=== PATIENT | female | born 1990 | race Caucasian/White ===

== ENCOUNTER 2016-12-03 00:22 | Inpatient (IN) | payer BC ==
[2016-12-03 00:33] VITALS: O2SAT 98
--- NOTE | 2016-12-03 00:42 | ED PDOC ---
Psych Transfer Clearance - Clearance Statement Clearance Statement: Reviewed vital signs, lab results and transfer papers. Patient clinically stable for psychiatric admission. cleared by dr archer
[2016-12-03] MEDS ORDERED: Magnesium Hydroxide Susp 30 ml UD PO PRN (01:03)
[2016-12-03] MEDS ORDERED: Alum-Mag Hydrox-Simethicone Susp (30 mL) PO PRN (01:03)
[2016-12-03] MEDS ORDERED: DiphenhydrAMINE 50 mg/ml Inj IM PRN (01:03)
[2016-12-03 07:21] LABS: T4 11.2 ug/dl (5.5-11.0)
[2016-12-03 07:35] LABS: THYROID STIMULATING HORMONE 1.13 mIU/ML (0.46-4.68)
--- NOTE | 2016-12-03 10:20 | PCM.PSYCH ---
Initial Psychiatric Evaluation - Initial Psychiatric Evaluation Type of Admission: Voluntary Legal Status: Capacity Chief Complaint (in patient's own words): "I've been hearing voices and seeing shadows" Patient's Reaction to Hospitalization: HPI: 26 yo female, resident of the [place], presented to the ED with worsening visual and auditory hallucinations. She reports that she was previously taking Risperdal but stopped because it caused her to sleep walk. No SI/HI. No paranoia. She is reports AH during the interview, but states that she cannot make out what the voices are saying. +Sleep and appetite disturbances. +Intermittent panic attacks and anxiety due to psychosis. She also reports intermittent visual hallucinations of shadows and also saw a small child, which she found distressing. PPHx: Reports that she was diagnosed with "psychosis" and panic attacks in the past. She used to see a Dr. Gaines, but has not been compliant with follow up. No history of psychiatric admissions. SHx: Completed 12th grade. 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 Lives between her boyfriend's house and her mother's home. Denies illicit drug use. MHx: Denies medical hx All: NKDA FHx: Denies family hx of mental illness Current Medications: Active Medications Generic Name Dose Route Start Last Admin Trade Name Freq PRN Reason Stop Dose Admin Acetaminophen 650 mg 12/03/16 01:08 Tylenol 325mg Tab PO Q4 PRN Pain, moderate (4-7) Al Hydrox/Mg Hydrox/Simethicone 30 ml 12/03/16 01:03 Maalox Plus 30 Ml PO Q4 PRN Dyspepsia Diphenhydramine HCl 50 mg 12/03/16 01:03 Benadryl IM Q6 PRN Extrapyramidal S/S Unable PO Diphenhydramine HCl 50 mg 12/03/16 01:03 Benadryl PO Q6 PRN Extrapyramidal Symptoms Diphenhydramine HCl 50 mg 12/03/16 01:07 Benadryl PO HS PRN Sleep Haloperidol 5 mg 12/03/16 01:03 Haldol PO Q4 PRN Agitation Haloperidol Lactate 5 mg 12/03/16 01:03 Haldol IM Q4 PRN Agitation, Unable to Take PO Lorazepam 2 mg 12/03/16 01:03 Ativan IM Q4 PRN Anxiety/Agitation,Unable PO Lorazepam 2 mg 12/03/16 01:03 Ativan PO Q4 PRN Anxiety/Agitation Magnesium Hydroxide 30 ml 12/03/16 01:03 Milk Of Magnesia PO HS PRN Constipation Olanzapine 5 mg 12/03/16 22:00 Zyprexa PO HS RIA Sertraline HCl 50 mg 12/04/16 09:00 Zoloft PO DAILY RIA Past Psychiatric History - Past Psychiatric History Pertinent Medical Hx (Current Medical&Sleep Prob, Allergies): Allergies Allergy/AdvReac Type Severity Reaction Status Date / Time No Known Allergies Allergy Verified 12/03/16 00:31 Sertraline [Zoloft] 50 mg PO DAILY 12/02/16 Review of Systems - Psychiatric Psychiatric: Abnormal Sleep Pattern, Anxiety, Auditory Hallucinations, Change in Appetite, Mood Swings, Panic Attacks, Visual Hallucinations Mental Status Examination - Personal Presentation Personal Presentation: Looks stated age - Affect Affect: Constricted - Motor Activity Motor Activity: Calm - Reliability in Providing Information Reliability in Providing Information: Good - Speech Speech: Organized - Mood Mood: Anxious - Formal Thought Process Formal Thought Process: Hallucinations - Hallucinations/Delusions Hallucinations: Auditory - Obsessions/Compulsions Obsessions: No Compulsions: No - Cognitive Functions Orientation: Person, Place, Situation, Time Sensorium: Alert Attention/Concentration: Attentive Estimate of Intelligence: Average Judgement: Intact, as evidence by: Good judgement Memory: Recent intact, as evidence by: Ability to recall events of the day, Remote intact, as evidenced by: Abilit to recall sig. life events, Remote intact , as evidenced by: Ability to recall historical events - Risk Risk: Diminished functioning - Strength & Assets Inventory Strength & Assets Inventory: Family support, Cooperative DSM 5 DX - DSM 5 DSM 5 Diagnosis: Schizophrenia; Anxiety disorder unspecified - Recommended/Plan of Treatment Treatment Recommendations and Plan of Treatment: -Admit to psychiatry -Start Zoloft 50 mg PO Daily and Zyprexa 5 mg PO HS -Individual and group therapy -Routine hospitalist consult Projected ELOS: 2-5 days Discharge Plan and Discharge Criteria: Discharge when psychiatrically stable - Smoking Cessation Smoking Cessation Initiated: No Reason for not providing: Not indicated
--- NOTE | 2016-12-03 12:01 | CP.PCM.CON ---
History of Present Illness - History of Present Illness History of Present Illness: 26 yo female with history of schizophrenia admitted to psyche unit because of panic attack and anxiety. Review of Systems - Review of Systems All systems: reviewed and no additional remarkable complaints except (aside from those mentioned above, 12 point system review were megative by me) Past Patient History - Tetanus Immunizations Tetanus Immunization: Unknown - Past Medical History & Family History Past Medical History?: No Past Family History: Reviewed and not pertinent - Past Social History Smoking Status: Never Smoked Alcohol: None Drugs: Denies - CARDIAC Hx Cardiac Disorders: No - PULMONARY Hx Respiratory Disorders: No - NEUROLOGICAL Hx Neurological Disorder: No - HEENT Hx HEENT Problems: No - RENAL Hx Chronic Kidney Disease: No - ENDOCRINE/METABOLIC Hx Endocrine Disorders: No - HEMATOLOGICAL/ONCOLOGICAL Hx Blood Disorders: No - INTEGUMENTARY Hx Dermatological Problems: No Other/Comment: hydradenitis - MUSCULOSKELETAL/RHEUMATOLOGICAL Hx Musculoskeletal Disorders: No - GASTROINTESTINAL Hx Gastrointestinal Disorders: No - GENITOURINARY/GYNECOLOGICAL Hx Genitourinary Disorders: No - PSYCHIATRIC Hx Substance Use: No - SURGICAL HISTORY Hx Surgeries: No Meds Allergies/Adverse Reactions: Allergies Allergy/AdvReac Type Severity Reaction Status Date / Time No Known Allergies Allergy Verified 12/03/16 00:31 - Medications Medications: Current Medications Acetaminophen (Tylenol 325mg Tab) 650 mg PO Q4 PRN PRN Reason: Pain, moderate (4-7) Al Hydrox/Mg Hydrox/Simethicone (Maalox Plus 30 Ml) 30 ml PO Q4 PRN PRN Reason: Dyspepsia Diphenhydramine HCl (Benadryl) 50 mg IM Q6 PRN PRN Reason: Extrapyramidal S/S Unable PO Diphenhydramine HCl (Benadryl) 50 mg PO Q6 PRN PRN Reason: Extrapyramidal Symptoms Diphenhydramine HCl (Benadryl) 50 mg PO HS PRN PRN Reason: Sleep Haloperidol (Haldol) 5 mg PO Q4 PRN PRN Reason: Agitation Haloperidol Lactate (Haldol) 5 mg IM Q4 PRN PRN Reason: Agitation, Unable to Take PO Lorazepam (Ativan) 2 mg IM Q4 PRN PRN Reason: Anxiety/Agitation,Unable PO Lorazepam (Ativan) 2 mg PO Q4 PRN PRN Reason: Anxiety/Agitation Magnesium Hydroxide (Milk Of Magnesia) 30 ml PO HS PRN PRN Reason: Constipation Olanzapine (Zyprexa) 5 mg PO HS RIA Sertraline HCl (Zoloft) 50 mg PO DAILY RIA Physical Exam - Constitutional Appears: No Acute Distress - Head Exam Head Exam: ATRAUMATIC - Eye Exam Eye Exam: absent: Scleral icterus - ENT Exam ENT Exam: Mucous Membranes Moist - Neck Exam Neck exam: Negative for: Meningismus - Respiratory Exam Respiratory Exam: absent: Rhonchi, Wheezes, Respiratory Distress - Cardiovascular Exam Cardiovascular Exam: REGULAR RHYTHM, +S1, +S2 - GI/Abdominal Exam GI & Abdominal Exam: Soft. absent: Tenderness - Rectal Exam Rectal Exam: Deferred - Extremities Exam Extremities exam: Negative for: pedal edema - Back Exam Back exam: NORMAL INSPECTION - Neurological Exam Neurological exam: Alert, Oriented x3 - Psychiatric Exam Psychiatric exam: Normal Affect - Skin Skin Exam: Dry, Intact Results - Vital Signs Recent Vital Signs: Last Vital Signs Temp 97.7 F 12/03/16 05:29 Pulse 82 12/03/16 05:29 Resp 20 12/03/16 05:29 BP 131/68 12/03/16 05:29 Pulse Ox 98 12/03/16 00:31 - Labs Labs: Laboratory Results - last 24 hr 12/03/16 12/03/16 06:00 06:00 Hemoglobin A1c 5.8 Triglycerides 63 Cholesterol 138 LDL Cholesterol Direct 72 HDL Cholesterol 46 Thyroxine (T4) 11.2 H TSH 3rd Generation 1.13 Assessment & Plan (1) Psychosis Status: Acute Comment: psyche is managing
[2016-12-03 18:25] VITALS: RESP 18; TEMP 98.1
[2016-12-04 06:03] VITALS: BP 129/65; PULSE 79
--- NOTE | 2016-12-04 09:23 | PCM.PYCHDC ---
Mental Status Examination - Mental Status Examination Orientation: Person, Place, Situation, Time Memory: Intact Mood: Neutral Affect: Broad Speech: Appropriate Attention: WNL Concentration: WNL Association: WNL Fund of Knowledge: WNL Formal Thought Process: Hallucinations Description of patient's judgement and insight: Fair insight/judgment Psychotic Thoughts and Behaviors: +intermittent AH, which are improving, no CAH Suicidal Ideation: No Current Homicidal Ideation?: No Discharge Summary - Discharge Note Reason for Hospitalization: HPI: 26 yo female, resident of the [place], presented to the ED with worsening visual and auditory hallucinations. She reports that she was previously taking Risperdal but stopped because it caused her to sleep walk. No SI/HI. No paranoia. She is reports AH during the interview, but states that she cannot make out what the voices are saying. +Sleep and appetite disturbances. +Intermittent panic attacks and anxiety due to psychosis. She also reports intermittent visual hallucinations of shadows and also saw a small child, which she found distressing. PPHx: Reports that she was diagnosed with "psychosis" and panic attacks in the past. She used to see a Dr. Gaines, but has not been compliant with follow up. No history of psychiatric admissions. SHx: Completed 12th grade. 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 Lives between her boyfriend's house and her mother's home. Denies illicit drug use. MHx: Denies medical hx All: NKDA FHx: Denies family hx of mental illness Laboratory Data: Abnormal Lab Results 12/03/16 12/03/16 06:00 06:00 Hemoglobin A1c 5.8 RPR Nonreactive Consultations:: List each consultation separately and include: 1. Reason for request. 2. Findings. 3. Follow-up Consultations: Routine medicine consult- no acute medical issues Summary of Hospital Course include:: 1. Description of specific treatment plan utilized for patients during their course of treatmen. 2. Summarize the time- course for resolution of acute symptoms and/or regressed behaviors. 3. Describe issues identified and worked on during hospitalization. 4. Describe medication utilized. 5. Describe medical problems identified and treated. 6. Reassessment of suicide risk Summary of Hospital Course: Patient was admitted to the psychiatry unit and started on Zoloft 50 mg PO HS and Zyprexa 5 mg PO HS. She reports that her auditory hallucinations are improving. She submitted a 48 hour letter requesting discharge from the hospital and will be discharge today as she does not meet criteria for involuntary commitment. She was provided with individual and group therapy. - Final Diagnosis (DSM 5) Condition upon Discharge: STABLE DSM 5: Schizophrenia Disposition: HOME/ ROUTINE Follow-up Treatment Plan: -Continue Zoloft 50 mg PO Daily and Zyprexa 5 mg PO HS -Ativan 0.5 mg PO BID PRN anxiety/ panic attacks -Outpatient psychiatric follow-up Prescriptions/Medication Reconciliation: LORazepam [Ativan] 0.5 mg PO BID PRN #30 tab PRN Reason: Anxiety Olanzapine [Zyprexa] 5 mg PO HS #30 tablet Sertraline [Zoloft] 50 mg PO HS #30 tab - Smoking Cessation Smoking Cessation Medication prescribed: No Reason for not providing: Not indicated - Antipsychotic Medications Pt discharged on 2 or more routine antipsychotic medications: No
== END 2016-12-04 15:30 | disposition home or self-care (01) | DRG 885 ==
LOC: H.ER 00:22 → H.STEP 00:41
PROVIDERS: ADMIT Psychiatry & Neurology Psychiatry; ATTEND Psychiatry & Neurology Psychiatry
PROC: GZHZZZZ Group Psychotherapy (ICD-10-PCS; principal; 2016-12-03)
PROC: GZ58ZZZ Individual Psychotherapy, Cognitive-Behavioral (ICD-10-PCS; 2016-12-03)
DX: F20.9 Schizophrenia, unspecified (principal); F06.4 Anxiety disorder due to known physiological condition; F41.0 Panic disorder [episodic paroxysmal anxiety]; Z91.19 Patient's noncompliance with other medical treatment and regimen